=== PATIENT | female | born 1985 | race Caucasian/White ===

== ENCOUNTER → 2017-10-22 15:54 | Outpatient (CLI) | payer MEDICAID, SELFPAY ==
[2017-10-22 19:24] LABS: Chlamydia Trachomatis by PCR Negative (Negative); Neisserai gonorrhoeae by PCR Negative (Negative); Probe Check PASS; Sample Adequacy Control PASS; Specimen Processing Control PASS
[2017-10-25 03:49] LABS: Rapid Plasmin Reagin (RPR) NONREACTIVE (NONREACTIVE)
[2017-10-25 09:54] LABS: HEPATITIS B SURFACE AG Negative (Negative); Hep C Antibodies <0.1 s/co ratio (0.0-0.9)
== END ==
PROVIDERS: Visit Provider Obstetrics & Gynecology
DX: Z11.3 Encounter for screening for infections with a predominantly sexual mode of transmission (principal)
CPT/HCPCS: 36415; 86592; 86803; 87340; 87491; 87591

== ENCOUNTER → 2018-09-15 | Outpatient (CLI) | payer MEDICAID, SELFPAY ==
[2018-09-23 14:24] LABS: HPV Reflexed? NOT INDICATED
== END | disposition home or self-care (01) ==
PROVIDERS: Referring Provider Obstetrics & Gynecology; Visit Provider Obstetrics & Gynecology
DX: Z12.4 Encounter for screening for malignant neoplasm of cervix (principal)
CPT/HCPCS: 87624; 88175; G0145

== ENCOUNTER → 2018-09-16 | Outpatient (CLI) | payer MEDICAID, SELFPAY ==
[2015-12-20 05:29] VITALS: BMI 31.9
--- NOTE | 2018-09-16 09:26 | BI_ITS ---
MAMMOGRAPHY - BILATERAL DIAGNOSTIC REASON FOR EXAM: Female, 33 years old. Left breast pain PERTINENT HISTORY: Non-contributory. TECHNIQUE: Digital examination. Mediolateral oblique (MLO) and craniocaudad (CC) views of both breasts were obtained, along with 3-D christal synthesis. CAD: CAD was performed on this study. COMPARISON: None. FINDINGS: Breast Composition: There are scattered areas of fibroglandular density. There are no dominant masses or suspicious calcifications. No other significant abnormalities are identified. However, patient's physician noted a palpable lump in the left breast. No abnormalities identified on this mammogram but further evaluation with ultrasound is recommended to exclude no underlying sinister lesion. BI/DIAG MAMM W/CAD, BILAT IMPRESSION: No suspicious mammographic findings, however, further evaluation of the left breast with ultrasound is recommended to exclude an underlying lesion. Recall Side: Left Breast ASSESSMENT CATEGORY: BIRADS Category 0: Incomplete. Need additional imaging evaluation. A letter regarding these results will be sent to the patient by the facility within 30 days. FOLLOW UP RECOMMENDATION: Ultrasound Recommended. (I) Approximately 10% of breast cancers are not detected by mammography. A normal mammogram should not delay biopsy of a clinically suspicious abnormality. Electronically Signed: Noah Pulido MD at 11:37 EDT , Service support ,
--- NOTE | 2018-09-16 09:26 | US_ITS ---
STUDY: ULTRASOUND BREAST - LEFT REASON FOR EXAM: Female, 33 years old. Lump TECHNIQUE: Axial and longitudinal images of the LEFT breast were performed with a high resolution ultrasound transducer. COMPARISON: None. FINDINGS: LEFT Breast: Ultrasound evaluation of the left breast was performed and shows only normal dense fibroglandular tissue. There is no suspicious solid or cystic mass, architectural distortion, or shadowing calcifications. US/Breast Limited Unilateral IMPRESSION: No suspicious sonographic findings ASSESSMENT CATEGORY: BIRADS Category 1: Negative. A letter regarding these results will be sent to the patient by the facility within 30 days. Electronically Signed: Noah Pulido MD at 11:37 EDT , Service support ,
== END | disposition home or self-care (01) ==
PROVIDERS: Referring Provider Obstetrics & Gynecology; Visit Provider Obstetrics & Gynecology
DX: N64.4 Mastodynia (principal)
CPT/HCPCS: 76642; 77062; 77066; G0279

== ENCOUNTER → 2019-06-30 07:15 | Outpatient (CLI) | payer OTHER, MEDICAID, SELFPAY ==
[2015-12-20 05:29] VITALS: BMI 31.9
[2019-06-30 08:08] LABS: hCG Titer Quant., Serum < 1 mIU/mL (1-3)
== END ==
PROVIDERS: Referring Provider Obstetrics & Gynecology; Visit Provider Obstetrics & Gynecology
DX: N91.1 Secondary amenorrhea (principal)
CPT/HCPCS: 36415; 84702